=== PATIENT | female | born 1970 | race Caucasian/White ===

== ENCOUNTER → 2019-08-07 17:06 | Outpatient (REF) | payer OTHER, SELFPAY | LOC: ANHLAB 17:06 | PROVIDERS: PCP Family Medicine; Visit Provider Surgery Plastic and Reconstructive Surgery | DX: C44.90 Unspecified malignant neoplasm of skin, unspecified (principal); D49.2 Neoplasm of unspecified behavior of bone, soft tissue, and skin | CPT/HCPCS: 88305 ==

== ENCOUNTER → 2019-09-08 11:54 | Outpatient (CLI) | payer OTHER, SELFPAY ==
--- NOTE | ~2019-09-08 | MM_ITS ---
EXAMINATION: MM scrn jazlyn implant BI w davis HISTORY: Screening mammogram TECHNIQUE: Craniocaudal and mediolateral oblique 3-D tomosynthesis images with implant displacement a nd synthetic 2-D images were generated. Craniocaudal and mediolateral oblique views of the breasts wi thout implant displacement were obtained using full field digital mammography. CAD analysis was submi tted and interpreted. COMPARISON: 02/11/2018, 03/18/2014 bilateral digital screening mammogram examinations BREAST PARENCHYMAL COMPOSITION: There are scattered areas of fibroglandular density. FINDINGS: Status post bilateral augmentation mammoplasty. There is no evidence of suspicious mass, ca lcification, or architectural distortion to suggest malignancy in either breast. There has been no cooper spicious interval change. IMPRESSION: 1. No mammographic evidence of malignancy. 2. Recommend routine screening mammography in one year. BI-RADS Category 1: Negative Reviewed, dictated and finalized at location A. [facility] [employer] PSYCHOLOGIST
== END ==
PROVIDERS: PCP Family Medicine; Visit Provider Family Medicine
DX: Z12.31 Encounter for screening mammogram for malignant neoplasm of breast (principal)
CPT/HCPCS: 77063; 77067

== ENCOUNTER → 2019-10-30 14:27 | Outpatient (REF) | payer OTHER, SELFPAY | LOC: ANHLAB 14:27 | PROVIDERS: PCP Family Medicine; Visit Provider Surgery Plastic and Reconstructive Surgery | DX: C43.72 Malignant melanoma of left lower limb, including hip (principal) | CPT/HCPCS: 88305 ==

== ENCOUNTER 2022-01-10 10:15 | Emergency (ER) | payer OTHER, SELFPAY ==
[2022-01-10 10:28] VITALS: BP 106/80; PULSE 99; RESP 20; TEMP 36.6; O2SAT 98
--- NOTE | 2022-01-10 10:29 | ED.URI ---
HPI - URI/Sore Throat General Chief Complaint: Upper Respiratory Infection Stated Complaint: Cough Time Seen by Provider: 01/10/22 10:36 Source: patient and RN notes reviewed Mode of arrival: ambulatory Limitations: no limitations History of Present Illness HPI Narrative: 51-year-old female presents with concern for cough. She reports tomorrow will be 1 week of symptoms. She reports persistent nonproductive cough. She reports normal body aches, feeling feverish, chills. She reports sweats. She reports she has not measured a temperature. She reports she has tried multiple iuxi-tga-fhzoanw medications without relief. Reports the cough keeps her awake at night. She denies rhinorrhea, nasal congestion, sore throat. She reports headache. She denies known sick contacts. Reports she is taken to negative COVID test at home. In a separate complaint she reports she got bit by a cat on her right hand 2 days ago. She denies general swelling, redness, warmth, drainage, decreased sensation, strength, range of motion. MD elicited complaint: cough and other (Cat bite) Related Data Allergies Allergy/AdvReac Type Severity Reaction Status Date / Time sulfamethoxazole Allergy Unknown Rash Verified 10/11/21 10:19 trimethoprim Allergy Unknown Rash Verified 10/11/21 10:19 Review of Systems Review of Systems: CONSTITUTIONAL: Reports malaise, chills, sweats EYES: Denies visual changes, redness, or discharge. ENT: Denies rhinorrhea, congestion, sinus pain, otalgia and sore throat. CARDIOVASCULAR: Denies chest pain, palpitations, or edema. RESPIRATORY: Reports persistent nonproductive cough. Reports occasional dyspnea. GASTROINTESTINAL: Denies abdominal pain, nausea, vomiting, diarrhea SKIN: Reports a cat bite to her right hand MUSCULOSKELETAL: Reports myalgia. NEUROLOGIC: Reports headache. All systems reviewed & are unremarkable except as noted in HPI and below PMFSH Past Medical History Medical History BMI 29.0-29.9,adult Tobacco abuse Surgical History Surgical History History of cosmetic surgery Breast feb and tum2013 Family History Family History Mother Carcinoma of colon Father Family history of lung cancer Family history of malignant neoplasm of urinary bladder Family history of malignant neoplasm of kidney Sibling , cancer No problems noted. Sibling No problems noted. Other Cerebrovascular accident Diabetes mellitus Family history of cardiovascular disease Family history of malignant neoplasm Hypertension Social History Social History Tobacco type: cigarettes Second hand tobacco smoke exposure: No Alcohol intake: current Substance use: current Substance use type: marijuana Additional occupation/education comments: hairdresser Gender identity (if verbalized by the patient): Female Comments At time of signature, agree with nursing past medical, surgical, social and family history. There is no relevant family history pertinent to the presenting complaint Exam Narrative: GENERAL: Nontoxic-appearing and in no acute distress. HEAD: Normocephalic EYES: PERRLA, conjunctivae clear ENT: Nares clear, turbinates edematous and erythematous, clear discharge. Mucous membranes moist. NECK: Supple. CHEST: Clear to auscultation, breath sounds diminished in the bases bilaterally No wheezing, rhonchi, rales, or stridor. No respiratory distress, difficulty speaking in full sentences due to coughing Persistent cough noted HEART: Regular rate and rhythm. No murmur heard. Bronchophony noted in bilateral lower bases SKIN: Warm, dry, no rash. NEURO: Alert and oriented x3. PSYCH: Normal mood and affect Course Course Emergency Course: Patient is aware of d
== END 2022-01-10 10:48 | disposition home or self-care (01) ==
PROVIDERS: Emergency Provider Nurse Practitioner; PCP Family Medicine
DX: J06.9 Acute upper respiratory infection, unspecified (principal)
CPT/HCPCS: 99213; G0463

== ENCOUNTER → 2022-01-19 10:30 | Outpatient (CLI) | payer OTHER, SELFPAY ==
--- NOTE | ~2022-01-19 | XR_ITS ---
EXAMINATION: XR chest 2V 01/19/2022 11:46 INDICATION: Pneumonia. Dyspnea. PROCEDURE: 2 view chest COMPARISON: No prior studies for comparison. FINDINGS: The lungs are clear. The cardiomediastinal silhouette is within normal limits. There are no pleural effusions. There is no pneumothorax suspected. IMPRESSION: 1: NO ACUTE CARDIOPULMONARY DISEASE. Reviewed, dictated and finalized at location A.
== END ==
PROVIDERS: PCP Family Medicine; Visit Provider Nurse Practitioner Family
DX: J18.9 Pneumonia, unspecified organism (principal)
CPT/HCPCS: 71046

== ENCOUNTER 2022-02-03 13:39 | Outpatient (CLI) | payer OTHER, SELFPAY ==
--- NOTE | ~2022-02-03 | XR_ITS ---
XR lumbar spine 2-3V 02/03/2022 14:03 Indication: Low back pain. Radiculopathy. Procedure: 3 views lumbar spine Comparison: 11/06/2016 Findings: Vertebral body and disc heights are preserved. No fracture, subluxation or dislocation. Ped icles intact. Sacral foramen are symmetric. No evidence for spondylolisthesis. Impression: 1: No significant abnormality of the lumbar spine. Reviewed, dictated and finalized at location A. Impression: 1: No significant abnormality of the lumbar spine.
== END 2022-02-03 13:40 | disposition home or self-care (01) ==
PROVIDERS: PCP Family Medicine; Visit Provider Physician Assistant Medical
DX: M54.16 Radiculopathy, lumbar region (principal)
CPT/HCPCS: 72100

== ENCOUNTER → 2022-02-13 10:13 | Outpatient (CLI) | payer OTHER, SELFPAY ==
--- NOTE | ~2022-02-13 | MR_ITS ---
EXAMINATION: MR lumbar spine wo con DATE: 02/13/2022 10:38 INDICATION: Lumbar pain with radiculopathy. TECHNIQUE: Magnetic resonance imaging (MRI) of the lumbar spine was performed without intravenous con trast. Sequences included sagittal T2-weighted FSE, sagittal T2-weighted FS FSE, sagittal T1-weighted FSE, and axial T2-weighted FSE. COMPARISON: Lumbar spine radiographs 02/03/2022 FINDINGS: There is 4 degrees dextrocurvature of thoracolumbar spine. There is 3 mm retrolisthesis of L5 on S1. Vertebral body heights are normal. There is moderately decreased disc height at L5-S1. The distal spinal cord signal intensity is normal. The conus medullaris is at L1-L2. The following disc l evels are specifically discussed: L1-L2: The disc does not extend beyond the endplate margin. There is mild right facet joint osteoarth ritis. There is no neural foraminal stenosis. There is no central canal stenosis. L2-L3: The disc does not extend beyond the endplate margin. There is no facet joint osteoarthritis. T here is no neural foraminal stenosis. There is no central canal stenosis. L3-L4: The disc does not extend beyond the endplate margin. There is no facet joint osteoarthritis. T here is no neural foraminal stenosis. There is no central canal stenosis. L4-L5: The disc does not extend beyond the endplate margin. There is mild bilateral facet joint osteo arthritis. There is no neural foraminal stenosis. There is no central canal stenosis. L5-S1: There is a central extrusion that abuts the right S1 nerve root in right lateral recess. There is mild bilateral facet joint osteoarthritis. There is mild right neural foraminal stenosis. There i s mild central canal stenosis. IMPRESSION: 1. Moderate lower lumbar spondylosis. Reviewed, dictated and finalized at location A.
== END ==
PROVIDERS: PCP Family Medicine; Visit Provider Physician Assistant Medical
DX: M54.16 Radiculopathy, lumbar region (principal); M43.06 Spondylolysis, lumbar region
CPT/HCPCS: 72148

== ENCOUNTER → 2022-07-26 10:53 | Outpatient (CLI) | payer OTHER, SELFPAY ==
--- NOTE | ~2022-07-26 | MR_ITS ---
MRI of the lumbar spine Clinical History: Back pain, prior surgery Technique: Axial T2-weighted and gradient images, and sagittal T1-weighted, T2-weighted, and STIR ramona ges were acquired. Following intravenous administration of 17 cc MultiHance gadolinium, T1-weighted f at-sat imaging was performed in the axial and sagittal planes. COMPARISON: 02/13/2022 Findings: No fracture or subluxation seen in the lumbar spine. Vertebral bodies maintain normal heigh t and alignment. Patient is status post L5 laminectomy. There are reactive marrow signal changes abou t the L5-S1 disc space due to underlying degenerative disc disease. No other bone marrow signal abnor mality evident. At L1-L2, L2-L3, L3-L4, L4-L5, there is no disc bulge or herniation. No spinal canal stenosis or neur al foraminal narrowing at these levels. At L5-S1, central disc protrusion is again present, with small annular tear. There is no юлия spinal canal stenosis. There is mild facet arthropathy. Right neural foramen is mildly narrowed. Left neura l foramen preserved. There is a peripherally enhancing fluid collection in the posterior subcutaneous soft tissues at the L5 level, compatible with postoperative seroma, with enhancing scar tissue extending down to the spin al canal through the laminectomy defect. Impression: Status post interval L5 laminectomy. Persistent/recurrent disc protrusion at L5-S1, with mild right neural foraminal narrowing. Postoperative seroma and scar tissue at the L5 over, as detailed above. Correlate clinically for post operative infection. Reviewed, dictated and finalized at [facility]. 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 Persistent/recurrent disc protrusion at L5-S1, with mild right neural foraminal narrowing. Postoperative seroma and scar tissue at the L5 over, as detailed above. Correla te clinically for postoperative infection.
== END ==
PROVIDERS: PCP Family Medicine; Visit Provider Neurological Surgery
DX: M96.1 Postlaminectomy syndrome, not elsewhere classified (principal); M51.27 Other intervertebral disc displacement, lumbosacral region; M96.842 Postprocedural seroma of a musculoskeletal structure following a musculoskeletal system procedure
CPT/HCPCS: 72158; A9577

== ENCOUNTER 2022-10-18 12:17 | Day surgery (SDC) | payer OTHER, SELFPAY ==
--- NOTE | 2022-10-17 16:23 | PM.HPGS ---
History of Present Illness History of Present Illness Consent: Risks, benefits, and alternatives have been discussed and questions answered. Patient agrees to proceed with procedure. Chief complaint: Neoplasm Screening,Fam.HX.Neoplasm Digestive Organ Narrative: Shaniqua Alas is a 51 year old female referred for colon cancer screening. Her mother had colon cancer. She has had 2 previous colonoscopies. Hyperplastic polyp was removed in 2018. Review of Systems Review of Systems: All systems reviewed & are unremarkable except as noted in HPI and below PMFSH Past Medical History Medical History Anxiety and depression BMI 29.0-29.9,adult Hypothyroidism, unspecified Major depressive disorder, single episode, unspecified Tobacco abuse Tobacco use Surgical History Surgical History History of back surgery History of cosmetic surgery Breast feb and tum2013 Family History Family History Mother Carcinoma of colon Father Family history of lung cancer Family history of malignant neoplasm of urinary bladder Family history of malignant neoplasm of kidney Sibling , cancer No problems noted. Sibling No problems noted. Other Cerebrovascular accident Diabetes mellitus Family history of cardiovascular disease Family history of malignant neoplasm Hypertension Social History Social History Smoking status: Current every day smoker Tobacco type: cigarettes Second hand tobacco smoke exposure: No Alcohol intake: current Alcohol use details: socially Substance use: current Substance use type: marijuana Living arrangements: with family Occupation/Education: occupation Additional occupation/education comments: hairdresser Gender identity (if verbalized by the patient): Female Spiritual care concerns: No Meds Home Medications and Allergies Home Medications Medication Instructions Recorded Confirmed Type alprazolam 0.5 mg tablet 0.5 mg PO TID PRN anxiety #30 tabs 09/26/21 10/18/22 Rx levothyroxine 75 mcg tablet See Rx Instructions .Route 01/22/22 10/18/22 Rx .COMPLEX #90 tabs cyclobenzaprine 10 mg tablet 10 mg PO TID PRN muscle spasm #30 02/03/22 10/18/22 Rx tabs buspirone 7.5 mg tablet 7.5 mg PO BID #180 tabs 03/22/22 10/18/22 Rx citalopram 20 mg tablet See Rx Instructions .Route 07/19/22 10/18/22 Rx .COMPLEX #90 tabs dextroamphetamine-amphetamine 10 5 mg PO DAILY #30 tabs 08/09/22 10/18/22 Rx mg tablet (Adderall) gabapentin 300 mg capsule 300 mg PO Q8H 10/10/22 10/18/22 History oxycodone-acetaminophen 5 mg-325 1 tablet PO Q8H PRN Pain 10/10/22 10/18/22 History mg tablet Allergies Allergy/AdvReac Type Severity Reaction Status Date / Time sulfamethoxazole Allergy Unknown Rash Verified 10/18/22 12:33 trimethoprim Allergy Unknown Rash Verified 10/18/22 12:33 Exam Resp: Auscultation: clear to auscultation bilaterally Cardio: Rate: regular rate Rhythm: regular rhythm GI: GI Palp: Yes Soft to palpation and No Tenderness to palpation present (GI) Assessment and Plan Assessment and plan (1) Screening for colon cancer: Code(s): Z12.11 - Encounter for screening for malignant neoplasm of colon Status: Acute Assessment and Plan: Colonoscopy with possible biopsy or polypectomy or cautery or injection of substances.
--- NOTE | 2022-10-18 10:46 | WPDANESEPPF ---
Anes - Initial Pre Proc Eval Procedure: Operation Date: 10/18/22 14:00 Proposed Procedures p Colonoscopy - Vu Glasgow MD Date/Time: 10/18/22 10:46 Surgeon: Vu Glasgow MD Pre Op Diagnosis: Neoplasm Screening,Fam.HX.Neoplasm Digestive Organ Patient Data Age: 51 Gender: F Height: 1.7 m Weight: 84 kg Allergies Allergy/AdvReac Type Severity Reaction Status Date / Time sulfamethoxazole Allergy Unknown Rash Verified 10/18/22 12:33 trimethoprim Allergy Unknown Rash Verified 10/18/22 12:33 Home Medications Medication Instructions Recorded Confirmed Type alprazolam 0.5 mg tablet 0.5 mg PO TID PRN anxiety #30 tabs 09/26/21 10/18/22 Rx levothyroxine 75 mcg tablet See Rx Instructions .Route 01/22/22 10/18/22 Rx .COMPLEX #90 tabs cyclobenzaprine 10 mg tablet 10 mg PO TID PRN muscle spasm #30 02/03/22 10/18/22 Rx tabs buspirone 7.5 mg tablet 7.5 mg PO BID #180 tabs 03/22/22 10/18/22 Rx citalopram 20 mg tablet See Rx Instructions .Route 07/19/22 10/18/22 Rx .COMPLEX #90 tabs dextroamphetamine-amphetamine 10 5 mg PO DAILY #30 tabs 08/09/22 10/18/22 Rx mg tablet (Adderall) gabapentin 300 mg capsule 300 mg PO Q8H 10/10/22 10/18/22 History oxycodone-acetaminophen 5 mg-325 1 tablet PO Q8H PRN Pain 10/10/22 10/18/22 History mg tablet Patient hx anesthesia problems: none Family hx anesthesia problems: none Results Review: All pre-operative results and documents have been reviewed as part of the pre-operative evaluation. [facility] Past Medical History Medical History Anxiety and depression BMI 29.0-29.9,adult Hypothyroidism, unspecified Major depressive disorder, single episode, unspecified Tobacco abuse Tobacco use Surgical History Surgical History History of back surgery History of cosmetic surgery Breast aug and tummy 2013 Family History Family History Mother Carcinoma of colon Father Family history of lung cancer Family history of malignant neoplasm of urinary bladder Family history of malignant neoplasm of kidney Sibling , cancer No problems noted. Sibling No problems noted. Other Cerebrovascular accident Diabetes mellitus Family history of cardiovascular disease Family history of malignant neoplasm Hypertension Social History Social History Smoking status: Current every day smoker Tobacco type: cigarettes Second hand tobacco smoke exposure: No Alcohol intake: current Alcohol use details: socially Substance use: current Substance use type: marijuana Living arrangements: with family Occupation/Education: occupation Additional occupation/education comments: karen Gender identity (if verbalized by the patient): Female Spiritual care concerns: No Anes - Eval Final PreProcedure Day of Procedure 10/18/22 10:46 Patient weight: overweight Heart: regular rate and rhythm Lungs: clear to auscultation and normal air movement Airway: Mallampati scale class II Neurological: alert and oriented Last oral intake: >/= 8 hours ASA classification: II Emergent: no Anesthetic plan: proceed Anesthesia type and monitoring: general GIVS Results Review: All pre-operative results and documents have been reviewed as part of the pre-operative evaluation. Informed Consent: The patient's anesthetic plan and its attendant risks and benefits were discussed with the patient/family/POA. Questions were solicited and answers provided to the satisfaction of the patient/family/POA.
[2022-10-18 12:30] VITALS: BP 114/72; PULSE 84; RESP 20; TEMP 36.7; O2SAT 100
[2022-10-18] MEDS: LACTATED RINGERS 1,000 ML 150 ML IV CONT (12:46)
[2022-10-18 14:12] VITALS: BP 96/66; PULSE 87; RESP 20; O2SAT 99
[2022-10-18 14:22] VITALS: BP 120/79; PULSE 85; RESP 20; O2SAT 99
[2022-10-18 14:32] VITALS: BP 119/76; PULSE 74; RESP 20; O2SAT 99
--- NOTE | 2022-10-18 15:12 | WPDANESPN ---
Anes - Prog Note Post-Op Date/Time: 10/18/22 15:12 Cardiovascular status: normal Respiratory status: normal Airway patency: baseline Mental status: baseline Post-Op hydration status: normal Vital Signs: Last Vital Signs Temp 36.7 C 10/18/22 12:30 Pulse 74 10/18/22 14:32 Resp 20 10/18/22 14:32 BP 119/76 10/18/22 14:32 Pulse Ox 99 10/18/22 14:32 O2 Del Method Room Air 10/18/22 14:32 Pain Score (VAS): 0 I/O: Intake & Output 10/17/22 10/18/22 10/18/22 23:59 07:59 15:59 Intake Total 500 Balance 500 Post-procedural complaints: none Patient Feedback: Patient satisfied with anesthetic care.
== END 2022-10-18 14:59 | disposition home or self-care (01) ==
PROVIDERS: PCP Family Medicine; Visit Provider Internal Medicine Gastroenterology
PROC: 0DJD8ZZ Inspection of Lower Intestinal Tract, Via Natural or Artificial Opening Endoscopic (ICD-10-PCS; CPT 45378; principal; 2022-10-18 14:00)
DX: Z12.11 Encounter for screening for malignant neoplasm of colon (principal)
CPT/HCPCS: 45378

== ENCOUNTER 2022-10-31 12:23 | Outpatient (CLI) | payer OTHER, SELFPAY ==
[2022-10-31 13:44] LABS: Alanine Aminotransferase 24 U/L (6-35); Alkaline Phosphatase 64 U/L (38-126); Amylase 53 U/L (30-110); Aspartate Amino Transferase 22 U/L (14-36); Bilirubin,Total 0.4 mg/dL (0.2-1.3); Lipase 72 U/L (23-300)
== END 2022-10-31 12:24 | disposition home or self-care (01) ==
LOC: ANHSURGERY 12:27
PROVIDERS: PCP Family Medicine; Visit Provider Surgery
DX: Z01.812 Encounter for preprocedural laboratory examination (principal); K80.20 Calculus of gallbladder without cholecystitis without obstruction
CPT/HCPCS: 36415; 80076; 82150; 83690; 86850; 86900; 86901

== ENCOUNTER 2022-11-01 01:26 | Day surgery (SDC) | payer OTHER, SELFPAY ==
[2022-10-30 08:24] VITALS: BMI 29.0
--- NOTE | 2022-10-30 08:45 | SUR.PREOP ---
Report to the Outpatient Waiting Room, entrance under the green pavilion located off [facility], at time 0900 on date 11/01/2022. Planned Procedure Time: 1100. Time changes happen often and if your time is changed the preop area will call you the afternoon before. - You and your visitor will be asked to self-screen and do not enter if you have any COVID symptoms. - A mask is optional within the hospital at this time. Patients may have clear liquids (water, carbonated beverages, clear teas, apple juice) until 3 hours (0800) prior to surgery with a maximum of 20 ounces. - No food from midnight until time of surgery - Infants may have breast milk until 4 hours before surgery, infant formula 6 hours prior to surgery. - Children will be allowed to drink immediately following surgery. If applicable, please bring a bottle or sippy cup to assist with drinking. Juice, water, soda, and popsicles are readily available. For infants on formula, please bring formula the day of surgery. Pacifiers are allowed. Take the following medications with a SIP of water the morning of surgery: Levothyroxine, Buspirone, Celexa, Lyrica, as needed- Alprazolam, as needed-Percocet , as needed-Tramadol DO NOT STOP ANY OF YOUR OTHER PRESCRIPTION MEDICATIONS PRIOR TO SURGERY ?EXCEPT THE FOLLOWING Medications to discontinue per physician N/A Please no make-up, nail pitcairn islander, hairspray, perfume, deodorant, or body powder the day of surgery. No jewelry (including any body piercings) or valuables the day of surgery, leave them at home. Please take a shower or bath the night before, or the morning of, surgery with an antibacterial soap- HIBICLENS. Wear comfortable, loose fitting clothing. Children are encouraged to wear pajamas. - Jewelry must be removed prior to entering the operating room. Rings and piercings that are not removed may be cut off. - The hospital will not accept responsibility for valuables. - Please leave all valuables, including medications, at home the day of surgery. If you are going home after surgery, a licensed milk pickup truck driver must drive you home. - NO public transportation without another adult if you receive anesthesia. - We recommend that an adult stay with you for 24 hours following discharge. - We also recommend that you do not drive, make important decision, drink alcoholic beverages, or take any drugs that were not prescribed by your health care provider for at least 24 hours after your discharge time. For Pediatric surgeries, we recommend two adults accompany the child home. Follow any additional instructions given to you from your surgeon. If you or anyone in your household have experienced Covid symptoms in the past week, please notify your surgeon or the nurse liaison at the phone number below for possible testing. Telephone instructions given to patient-Shaniqua and asked if any additional questions and then verbalized understanding. Patient advised to call surgeon office or pre surgery nurse liaison [phone] if any additional questions.
[2022-11-01] VITALS (9 sets, daily range): BP systolic 91–112; BP diastolic 46–75; PULSE 75–95; RESP 12–16; TEMP 36.3; O2SAT 98–100
[2022-11-01] MEDS: ACETAMINOPHEN 500 MG TABLET 1000 MG PO (09:08)
[2022-11-01] MEDS: KETOROLAC 15 MG/ML VIAL (*BKC) IV PUSH (09:10)
--- NOTE | 2022-11-01 09:10 | WPDANESEPPF ---
Anes - Initial Pre Proc Eval Procedure: Operation Date: 11/01/22 11:00 Proposed Procedures p Laparoscopic Cholecystectomy, Possible Open - Roque Coburn MD Date/Time: 11/01/22 09:10 Surgeon: Roque Coburn MD Pre Op Diagnosis: symp cholelithiasis Patient Data Age: 51 Gender: F Height: 1.7 m Weight: 84.09 kg Last Vital Signs Temp 36.3 C L 11/01/22 08:43 Pulse 90 11/01/22 08:43 Resp 16 11/01/22 08:43 BP 103/56 L 11/01/22 08:43 Pulse Ox 98 11/01/22 08:43 O2 Del Method Room Air 11/01/22 08:43 Allergies Allergy/AdvReac Type Severity Reaction Status Date / Time sulfamethoxazole Allergy Mild Rash Verified 11/01/22 07:44 trimethoprim Allergy Mild Rash Verified 11/01/22 07:44 Home Medications Medication Instructions Recorded Confirmed Type levothyroxine 75 mcg tablet See Rx Instructions .Route 01/22/22 10/30/22 Rx .COMPLEX #90 tabs buspirone 7.5 mg tablet 7.5 mg PO BID #180 tabs 03/22/22 10/30/22 Rx citalopram 20 mg tablet See Rx Instructions .Route 07/19/22 10/30/22 Rx .COMPLEX #90 tabs oxycodone-acetaminophen 5 mg-325 1 tablet PO Q8H PRN Pain 10/10/22 10/30/22 History mg tablet alprazolam 0.5 mg tablet 0.5 mg PO TID PRN anxiety #30 tabs 10/19/22 10/30/22 Rx omeprazole 40 mg capsule,delayed 40 mg PO DAILY #30 caps 10/19/22 10/30/22 Rx release pregabalin 25 mg capsule (Lyrica) 25 mg PO BID 10/19/22 10/30/22 History tramadol 50 mg tablet 50 mg PO Q6H PRN pain #1 tablet 10/19/22 10/30/22 Rx Patient hx anesthesia problems: none Family hx anesthesia problems: none Results Review: All pre-operative results and documents have been reviewed as part of the pre-operative evaluation. PMFSH Past Medical History Medical History Anxiety and depression BMI 29.0-29.9,adult BMI 30.0-30.9,adult Hypothyroidism, unspecified Major depressive disorder, single episode, unspecified Tobacco abuse Tobacco use Surgical History Surgical History History of back surgery History of cosmetic surgery Breast aug and tummy tuck 2013 Family History Family History Mother Carcinoma of colon Father Family history of lung cancer Family history of malignant neoplasm of urinary bladder Family history of malignant neoplasm of kidney Sibling , cancer Bone cancer Sibling No problems noted. Other Cerebrovascular accident Diabetes mellitus Family history of cardiovascular disease Family history of malignant neoplasm Hypertension Social History Social History Years smoked: 25 Smoking status: Current every day smoker Tobacco type: cigarettes Second hand tobacco smoke exposure: No Alcohol intake: current Drinks per week: 1 Alcohol use details: socially Substance use: current Substance use type: marijuana Other substance usage details: marijuana 2 weeks ago Lack of Transportation: No Lack of Food: Never True Current Housing: I Have Housing Concerned About Future Housing: No Difficulty Paying Gas/Electric Bills: No Difficulty Paying for Meds: No Currently Unemployed: No Education: Associate Degree Difficulty w/ Childcare or Family Care: No Living arrangements: with family Occupation/Education: occupation Additional occupation/education comments: karen Gender identity (if verbalized by the patient): Female Spiritual care concerns: No Anes - Eval Final PreProcedure Day of Procedure 11/01/22 09:10 Patient weight: overweight Heart: regular rate and rhythm Lungs: decreased breath sounds Airway: Mallampati scale class II Neurological: alert and oriented Last oral intake: >/= 8 hours ASA classification: III Emergent: no Anesthetic plan: proceed Anesthesia type and monitoring: general ETT and standard
[2022-11-01] MEDS: LACTATED RINGERS 1,000 ML 30 ML IV CONT ×2 (09:16→11:19)
[2022-11-01] MEDS: SCOPOLAMINE 1.5 MG PATCH TRANSDERM (09:17)
--- NOTE | 2022-11-01 09:25 | WPDHPUPDATE1 ---
History and Physical Update Update Date/Time: 11/01/22 09:25 History and Physical has been reviewed, including an updated exam of the patient. There are NO changes in the patient's condition. Risks, benefits, and alternatives have been discussed and questions answered. Patient agrees to proceed with procedure.
[2022-11-01] MEDS: ceFAZolin 2 GM/D5W 50 ML 2 GM/50 ML BAG IVPB (09:51)
[2022-11-01] MEDS: BUPivacaine HCL 0.5% PF 30 ML VIAL 20 ML INFILTRATE (10:56)
[2022-11-01] MEDS: LIDO 1%/EPINEPHRINE 1:100,000 50 ML VIAL 20 ML INFILTRATE (10:56)
[2022-11-01] MEDS: fentaNYL CITRATE INJ (*CRX) 100 MCG/2 ML VIAL 25 MCG IV PUSH ×4 (11:25→11:45)
[2022-11-01] MEDS: ONDANSETRON INJ 4 MG/2 ML VIAL IV PUSH (11:31)
--- NOTE | 2022-11-01 11:37 | W.PM.PROC2 ---
Procedure Note - Detailed Date of Procedure 11/01/22 Pre-op Diagnosis Symptomatic cholelithiasis Post-op Diagnosis Other (Chronic cholecystitis secondary to cholelithiasis) Procedure Performed Laparoscopic cholecystectomy Surgeon Roque Coburn MD Cardiology Technician MARCIO Garcia Anesthesia General Indications Patient is a 12-year-old female who presented with complaints of right upper quadrant epigastric abdominal pain made worse with eating. Multiple gallstones were noted to be within the gallbladder on imaging. She presents now for an elective laparoscopic cholecystectomy. Findings Large gallbladder with gallbladder wall thickening and some chronic adhesions of the omentum to the fundus and infundibulum of the gallbladder. Multiple gallbladder stones were present. Description of Procedure After informed consent was obtained the patient was brought to the operating room where she was placed in supine position and general endotracheal anesthesia was administered. The end was then prepped and draped in usual sterile fashion. Was then performed correctly identifying the patient as well as procedure to be performed and verified she was given perioperative IV antibiotics. The proceeded to enter the abdomen in the left upper quadrant utilizing a 5mm Optiview port with a direct optical insertion. Once inside the abdomen insufflated to adequate pneumoperitoneum of 15mmHg of CO2. There were no adhesions around the area the umbilicus we placed a 5mm Optiview port in the periumbilical position. Laparoscopic switched over to the periumbilical position the looking into the upper portion of the abdomen I could see very large gallbladder which was moderately distended with some moderate gallbladder wall thickening and chronic adhesions of the omentum to the gallbladder wall. I then placed additional trocar ports to include a 10mm epigastric trocar port and 2 right lateral subcostal 5mm trocar ports. I then held the gallbladder laparoscopic grasper at the dome and elevated the gallbladder towards the right shoulder over the right half liver. A 2nd grasper was then used over the gallbladder infundibulum. I then proceed to strip down the omental adhesions to the gallbladder wall bluntly. I then proceeded to strip down the visceroperitoneum off of the infundibular gallbladder to identify the cystic duct. The cystic duct was then dissected out circumferentially. The cystic artery was identified it was dissected out circumferentially as well. They have both an anterior and posterior branch and each branch was dissected out circumferentially. The posterior wall the gallbladder at the infundibulum dissected free of the liver bed until the critical view was obtained. At this point I then placed 2 clips proximally in cystic duct and 2 clips distally high on infundibular gallbladder. The cystic duct was then divided Endo Jana. The anterior branch of the cystic artery was going into the gallbladder it was clipped and divided. Posterior branch seemed to be going into the liver and this was a small branch so I do not think it was the right hepatic artery. It was preserved and was not divided. The gallbladder was resected off of the liver utilizing electrocautery without spilling any gallbladder stones or bile. Once the gallbladder was freed from the liver it was placed into an Endo-Catch bag and brought out through the epigastric trocar port site. The gallbladder gallstones within were sent to pathology for examination. I then irrigated out the right upper quadrant the abdomen the gallbladder fossa copious in sterile saline solution. Hemostasis was good there was no evidence of bile leak. I then aspirated the fluid from the right upper quadrant the abdomen from the pelvis. I then removed all the trocar ports under visualization all port sites appeared hemostatic. I then allowed the abdomen decompressed. The epigastric 10mm trocar port fascial defect was then
[2022-11-01] MEDS: oxyCODONE HCL (*CRX) 5 MG TAB IR PO (12:42)
== END 2022-11-01 13:31 | disposition home or self-care (01) ==
PROVIDERS: PCP Family Medicine; Visit Provider Surgery
PROC: 0FT44ZZ Resection of Gallbladder, Percutaneous Endoscopic Approach (ICD-10-PCS; CPT 47562; principal; 2022-11-01 11:00)
DX: K80.10 Calculus of gallbladder with chronic cholecystitis without obstruction (principal); F41.8 Other specified anxiety disorders; E03.9 Hypothyroidism, unspecified; F17.210 Nicotine dependence, cigarettes, uncomplicated; F12.90 Cannabis use, unspecified, uncomplicated
CPT/HCPCS: 47562; 36415; 80076; 82150; 83690; 86850; 86900; 86901; 88304; A9270; C1713; J0690; J1100; J1170; J1885; J2250; J2405; J2704; J2710; J3010; J7030; J7120

== ENCOUNTER → 2022-12-29 09:48 | Outpatient (CLI) | payer OTHER, SELFPAY ==
--- NOTE | ~2022-12-29 | MR_ITS ---
MRI of the lumbar spine Clinical History: Spondylosis Technique: Axial T2-weighted images, and sagittal T1-weighted, T2-weighted, and T2 fat-sat images wer e acquired. Following intravenous administration of 17 cc MultiHance gadolinium, T1-weighted fat-sat imaging was performed in the axial and sagittal planes. COMPARISON: 07/26/2022 Findings: Patient is status post interval posterior fusion from L5 to S1, bilateral rods and transped icular screws, as well as interbody fusion device present. L5 laminectomy is present. No acute fractu re or sublocation evident. No suspicious bone marrow signal reality seen. At L1-L2, L2-L3, L3-L4, L4-L5, there are mild to moderate facet joint degenerative changes. No disc b ulge or herniation at these levels. No spinal canal stenosis or neural foraminal narrowing at these l evels. At L5-S1, there is no disc bulge or herniation. No spinal canal stenosis evident. Possible mild right neural foraminal narrowing. Posterior paravertebral soft tissues are unremarkable aside from expected postoperative changes. No s uspicious/abnormal postcontrast enhancement identified. Impression: Status post interval posterior fusion/laminectomy L5-S1, as detailed above. Possible mild right neural foraminal narrowing at L5-S1. Reviewed, dictated and finalized at location M. Impression: Status post interval posterior fusion/laminectomy L5-S1, as detailed above. Possible mild right neural foraminal narrowing at L5-S1.
== END ==
PROVIDERS: PCP Family Medicine; Visit Provider Neurological Surgery
DX: M47.816 Spondylosis without myelopathy or radiculopathy, lumbar region (principal); Z98.1 Arthrodesis status
CPT/HCPCS: 72158; A9577

== ENCOUNTER 2023-01-09 10:41 | Emergency (ER) | payer OTHER, SELFPAY ==
--- NOTE | ~2023-01-09 | XR_ITS ---
EXAMINATION: XR chest 1V portable INDICATION: Left-sided chest pain after trauma TECHNIQUE: Portable AP chest at 1053 hours COMPARISON: 01/19/2022 FINDINGS: The lungs are free of acute opacities. No pleural effusion or pneumothorax. The cardiomedia stinal silhouette is normal. The visualized bones and soft tissues are unremarkable. IMPRESSION: 1. No acute cardiopulmonary abnormality. Reviewed, dictated and finalized at location A.
--- NOTE | ~2023-01-09 | CT_ITS ---
EXAMINATION: CTA chest PE protocol DATE: 01/09/2023 12:15 INDICATION: Left-sided chest pain, transient alteration of awareness TECHNIQUE: Computed tomography angiography (CTA) of the chest was performed with 100 mL Omnipaque-350 intravenous contrast timed to evaluate the pulmonary arteries. Coronal maximum intensity projection 3D-reconstructions were created by the technologist. The dose-length product (DLP) was 319.87 mGy-cm. Automated exposure control and iterative reconstruction technique were employed. COMPARISON: None. FINDINGS: The pulmonary arteries are well-opacified. No pulmonary embolism is identified. There are s mall pleural effusions, left greater than right. No pathologically enlarged thoracic lymph nodes are identified. The heart size is normal. Bilateral breast implants are noted. There is mild dependent at electasis. No pneumothorax is identified. There is an acute, nondisplaced anterior fracture of the le ft fifth rib. IMPRESSION: 1. No pulmonary embolus. 2. Acute, nondisplaced anterior fracture of the left fifth rib. 3. Small pleural effusions. Reviewed, dictated and finalized at location A.
--- NOTE | 2023-01-09 10:49 | ECG_ITS ---
Measurements Intervals Supply Rate: 75 P: -22 MA: 131 QRS: 24 QRSD: 81 T: 12 QT: 374 QTc: 418 Interpretive Statements SINUS RHYTHM NORMAL ECG NO PREVIOUS ECG AVAILABLE FOR COMPARISON Electronically Signed On 01-09-2023 12:15:48 CDT by Raman Murray D.O.
[2023-01-09 11:00] VITALS: BP 121/97; PULSE 90; RESP 16; TEMP 36.8; O2SAT 97
[2023-01-09 11:04] LABS: Basophils Percent Auto 0.3 % (0.2-1.2); Eosinophils Absolute Auto 0.2 K/mm3 (0-0.3); Eosinophils Percent Auto 2.3 % (0-4.4); Hematocrit 45.6 % (37.0-47.0); Hemoglobin 15.1 g/dL (12.0-15.0); Immature Granulocyte Absolute 0.02 K/mm3 (0.00-0.031); Immature Granulocyte Percent A 0.2 % (0-0.5); Lymphocytes Absolute Auto 1.95 K/mm3 (0.9-3.2); Lymphocytes Percent Auto 21.6 % (18.3-44.2); Mean Corpuscular HGB Conc 33.1 g/dl (32-36); Mean Corpuscular Hemoglobin 29.4 pg (26-34); Mean Corpuscular Volume 88.9 fl (80-100); Mean Platelet Volume 8.8 fl (7.4-10.4); Monocytes Absolute Auto 0.3 K/mm3 (0.1-0.6); Monocytes Percent Auto 3.5 % (2.6-8.5); Neutrophils Absolute Auto 6.5 K/mm3 (1.3-6.7); Neutrophils Percent Auto 72.1 % (45.5-73.1); Platelet Count Result 363 k/mm3 (150-375); Red Blood Count 5.13 M/mm3 (4.2-5.4); Red Cell Distribution Width 13.2 % (11.5-14.5)
[2023-01-09 11:16] LABS: Alanine Aminotransferase 27 U/L (6-35); Albumin Level 4.8 g/dL (3.5-5.1); Alkaline Phosphatase 88 U/L (38-126); Anion Gap 10 mmol/L (8-16); Aspartate Amino Transferase 27 U/L (14-36); Bilirubin,Total 0.6 mg/dL (0.2-1.3); Blood Urea Nitrogen 13 mg/dL (7-17); Calcium 9.7 mg/dL (8.4-10.2); Carbon Dioxide 28 mmol/L (22-30); Chloride 101 mmol/L (98-107); Estimated CRCL calculation 99 ml/min; Estimated Glomerular Filt Rate > 60; Glucose 113 mg/dL (65-110); Potassium 4.1 mmol/L (3.4-5.0); Sodium 139 mmol/L (137-145)
[2023-01-09] MEDS: MORPHINE SULFATE (*CRX) 4 MG/ML INJ IV PUSH (11:16)
[2023-01-09] MEDS: SODIUM CHLORIDE 0.9% IV 1,000 ML 999 ML IV CONT ×2 (11:16→13:45)
[2023-01-09] MEDS: KETOROLAC 30 MG/ML VIAL (*BKC) IV PUSH (13:45)
--- NOTE | 2023-01-09 14:18 | ED.SOB ---
HPI - SOB/Dyspnea General Chief Complaint: Shortness of Breath/Dyspnea Stated Complaint: Difficulty Breathing/pain Time Seen by Provider: 01/09/23 10:54 History of Present Illness HPI Narrative: Patient is a 52-year-old female who presents ER with left-sided chest wall pain. Worsening over the last 3 days. Worse with deep breath and movement. Holds her breast and chest to alleviate discomfort but is not helping. No runny nose or sore throat or productive cough. Symptoms began after she had a syncopal episode. She reports she had been outside for prolonged time in the heat and got up to go inside. She felt lightheaded and fell forward onto her face. was close by and saw her shortly after she fell. She woke up and then was helped to her feet and went inside. Patient did not seek care at a local emergency room that performed a CT scan of her head and performed other test without any acute injury identified other than her bruising. Related Data Allergies Allergy/AdvReac Type Severity Reaction Status Date / Time sulfamethoxazole Allergy Mild Rash Verified 11/08/22 09:35 trimethoprim Allergy Mild Rash Verified 11/08/22 09:35 Review of Systems Review of Systems: All systems reviewed & are unremarkable except as noted in HPI and below Constitutional: Constitutional: Denies chills, Denies fatigue and Denies fever(s) ENT: Denies nasal congestion and Denies sore throat Cardiovascular: Cardiovascular: Reports chest pain, Denies rapid heart rate and Denies radiating jaw, neck or arm pain Respiratory: Respiratory: Denies cough, Reports dyspnea and Denies wheezing Gastrointestinal: Gastrointestinal: Denies abdominal pain, Denies nausea and Denies vomiting Integumentary/Breasts: Skin/Breast: Reports breast pain Comments: Bruising PMFSH Past Medical History Medical History Anxiety and depression BMI 29.0-29.9,adult BMI 30.0-30.9,adult Hypothyroidism, unspecified Major depressive disorder, single episode, unspecified Tobacco abuse Tobacco use Surgical History Surgical History (Updated 11/08/22 @ 09:37 by Mar Mann) History of back surgery History of cosmetic surgery Breast aug and tummy 2013 Hx laparoscopic cholecystectomy 11/01/[address] Coburn. Family History Family History Mother Carcinoma of colon Father Family history of lung cancer Family history of malignant neoplasm of urinary bladder Family history of malignant neoplasm of kidney Sibling , cancer Bone cancer Sibling No problems noted. Other Cerebrovascular accident Diabetes mellitus Family history of cardiovascular disease Family history of malignant neoplasm Hypertension Social History Social History Years smoked: 25 Smoking status: Current every day smoker Tobacco type: cigarettes Second hand tobacco smoke exposure: No Alcohol intake: current Drinks per week: 1 Alcohol use details: socially Substance use: current Substance use type: marijuana Other substance usage details: marijuana 2 weeks ago Lack of Transportation: No Lack of Food: Never True Current Housing: I Have Housing Concerned About Future Housing: No Difficulty Paying Gas/Electric Bills: No Difficulty Paying for Meds: No Currently Unemployed: No Education: Associate Degree Difficulty w/ Childcare or Family Care: No Living arrangements: with family Occupation/Education: occupation Additional occupation/education comments: hairdresser Gender identity (if verbalized by the patient): Female Spiritual care concerns: No Exam Narrative: GENERAL: Uncomfortable-appearing, well-nourished, and in no acute distress. HEAD: Normocephalic, atraumatic. EYES: PERRL and EOMI. Old periorbital bruising left side. ENT: Mucous membranes moist. CHEST: Clear t
[2023-01-09 14:32] VITALS: BP 100/79; PULSE 75; RESP 14; O2SAT 100
== END 2023-01-09 14:33 | disposition home or self-care (01) ==
PROVIDERS: Emergency Provider Emergency Medicine; PCP Family Medicine
DX: S22.32XA Fracture of one rib, left side, initial encounter for closed fracture (principal); E03.9 Hypothyroidism, unspecified; F32.9 Major depressive disorder, single episode, unspecified; F41.9 Anxiety disorder, unspecified; F17.210 Nicotine dependence, cigarettes, uncomplicated; Z90.49 Acquired absence of other specified parts of digestive tract; W18.39XA Other fall on same level, initial encounter
CPT/HCPCS: 36415; 71045; 71275; 80053; 85025; 93005; 96374; 96375; 99284; J1885; J2270; J7030; Q9967

== ENCOUNTER → 2023-06-22 14:23 | Outpatient (CLI) | payer OTHER, SELFPAY ==
--- NOTE | ~2023-06-22 | CT_ITS ---
EXAMINATION: CT lumbar spine wo con DATE: 06/22/2023 14:41 INDICATION: Arthrodesis status post L5-S1 posterior and interbody fusion. TECHNIQUE: Computed tomography (CT) of the lumbar spine was performed without intravenous contrast. A utomated exposure control and iterative reconstruction technique were employed. The dose-length produ ct was 662.54 mGy-cm. COMPARISON: Lumbar spine MR dated 12/29/[address] abdomen and pelvis dated 06/15/2017 FINDINGS: 7 degrees lumbar dextrocurvature. 3 mm retrolisthesis L5 on S1. Partial L5 laminectomy with resection of the bilateral inferior articular processes. Attempted combined instrumented anterior and posterio r spinal fusion at L5-S1. There is some bone graft material within the pair of interbody fusion devic es but no solid osseous between the L5 and S1 vertebral bodies. Similar there is no solid osseous princess dging posteriorly. There is lucency with thin sclerotic rim surrounding both the left and right fixat ion screws at S1 which suggests loosening. Vertebral body heights are normal. The more cephalad disc spaces are normal. Mild bilateral sacroiliac osteoarthritis. Paravertebral soft tissues are unremarka ble. The following disc levels are specifically discussed: T12-L1 through L2-L3: The disc does not extend beyond the endplate margin. There is mild bilateral fa cet joint osteoarthritis. There is no neural foraminal stenosis. There is no central canal stenosis. L3-L4: Small left foraminal zone disc protrusion.. There is moderate right and mild left facet joint osteoarthritis. There is mild left neural foraminal stenosis. There is no central canal stenosis. L4-L5: The disc does not extend beyond the endplate margin. There is mild bilateral facet joint osteo arthritis. There is no neural foraminal stenosis. There is no central canal stenosis. L5-S1: There is prominent streak artifact associated with the anterior and posterior spinal fusion in strumentation. There are small endplate osteophytes at the bilateral foraminal zones resulting from t he inferior endplate of L5 which contributes to mild left-sided and mild to moderate right-sided neur al foraminal stenosis. Posterior decompression with no central canal stenosis. IMPRESSION: 1. Attempted instrumented anterior and posterior spinal fusion at L5-S1 with no solid osseous bridgin g yet apparent at the level of the disc space and with increased lucency surrounding the bilateral pe dicle screws at S1 suggesting loosening. 2. Mild scattered degenerative changes in the lumbar spine with neural foraminal stenosis, mild to mo derate on the right at L5-S1 and mild on the left at L3-L4 and L5-S1. Reviewed, dictated and finalized at location A. TER HELPER IMPRESSION: 1. Attempted instrumented anterior and posterior spinal fusion at L5-S1 with no solid osseous bridging yet apparent at the level of the disc space and with in creased lucency surrounding the bilateral pedicle screws at S1 suggesting loose ta. 2. Mild scattered degenerative changes in the lumbar spine with neural foramina l stenosis, mild to moderate on the right at L5-S1 and mild on the left at L3-L 4 and L5-S1.
== END ==
PROVIDERS: PCP Family Medicine; Visit Provider Neurological Surgery
DX: M51.36 Other intervertebral disc degeneration, lumbar region (principal); M51.37 Other intervertebral disc degeneration, lumbosacral region; M48.061 Spinal stenosis, lumbar region without neurogenic claudication; M48.07 Spinal stenosis, lumbosacral region; Z98.1 Arthrodesis status
CPT/HCPCS: 72131

== ENCOUNTER → 2023-09-11 10:54 | Outpatient (CLI) | payer OTHER, SELFPAY ==
--- NOTE | ~2023-09-11 | XR_ITS ---
EXAMINATION: XR lumbar spine 2-3V DATE: 09/11/2023 11:11 INDICATION: Arthrodesis status one year post L5-S1 fusion TECHNIQUE: Anteroposterior and lateral views of the lumbar spine were obtained. COMPARISON: 02/03/[address], 06/22/2023 FINDINGS: There are changes of posterior fusion and laminectomy and anterior interbody device placeme nt at L5-S1. There is persistent lucency surrounding the S1 pedicle screws. Bone alignment is normal. There is no fracture. The vertebral body heights are maintained. There is mild facet joint osteoarth ritis throughout the lumbar spine. Surgical clips in the right upper quadrant are likely from prior c holecystectomy. IMPRESSION: 1. Changes of posterior fusion and laminectomy at L5-S1 and interbody device placement with persisten t lucencies surrounding the S1 pedicle screws, suggestive of loosening. 2. Mild lumbar spondylosis. Reviewed, dictated and finalized at location L. ASST IMPRESSION: 1. Changes of posterior fusion and laminectomy at L5-S1 and interbody device pl acement with persistent lucencies surrounding the S1 pedicle screws, suggestive of loosening. 2. Mild lumbar spondylosis.
== END ==
PROVIDERS: PCP Neurological Surgery; Visit Provider Neurological Surgery
DX: M43.06 Spondylolysis, lumbar region (principal); M96.1 Postlaminectomy syndrome, not elsewhere classified; Z98.1 Arthrodesis status
CPT/HCPCS: 72100

== ENCOUNTER 2024-01-14 09:53 | Outpatient (CLI) | payer OTHER, SELFPAY ==
--- NOTE | ~2024-01-14 | CT_ITS ---
EXAMINATION: CT lumbar spine wo con DATE: 01/14/2024 10:06 INDICATION: Arthrodesis status. TECHNIQUE: Computed tomography (CT) of the lumbar spine was performed without intravenous contrast. A utomated exposure control and iterative reconstruction technique were employed. The dose-length produ ct was 582.51 mGy-cm. COMPARISON: CT lumbar spine 06/22/2023, MRI 12/29/2022 FINDINGS: There is 3 mm retrolisthesis of L5 on S1. Vertebral body heights are normal. There are garcias ges of anterior and posterior fusion procedures at L5-S1 with interbody devices and pedicle screws. N o bridging interbody bone. Again seen is lucency around the S1 screws. Vertebral body heights are nor mal. Intervertebral disc heights are normal. There are changes of cholecystectomy. The following disc levels are specifically discussed: L1-L2: The disc does not extend beyond the endplate margin. There is mild bilateral facet joint osteo arthritis. There is no neural foraminal stenosis. There is no central canal stenosis. L2-L3: The disc does not extend beyond the endplate margin. There is mild bilateral facet joint osteo arthritis. There is no neural foraminal stenosis. There is no central canal stenosis. L3-L4: The disc is bulging. There is mild bilateral facet joint osteoarthritis. There is mild bilater al neural foraminal stenosis. There is mild central canal stenosis. L4-L5: The disc is bulging. There is mild bilateral facet joint osteoarthritis. There is mild bilater al neural foraminal stenosis. There is no central canal stenosis. L5-S1: There is no facet joint osteoarthritis. There is mild right neural foraminal stenosis. There i s mild central canal stenosis with posterior decompression. IMPRESSION: 1. Mild lumbar spondylosis. 2. Anterior and posterior fusion procedures at L5-S1. Lucency again seen around the S1 screws, consis tent with loosening. Reviewed, dictated and finalized at location E. IMPRESSION: 1. Mild lumbar spondylosis. 2. Anterior and posterior fusion procedures at L5-S1. Lucency again seen around the S1 screws, consistent with loosening.
== END 2024-01-14 09:54 ==
LOC: MICIMG 09:54
PROVIDERS: PCP Neurological Surgery; Visit Provider Neurological Surgery
DX: M43.06 Spondylolysis, lumbar region (principal); Z98.1 Arthrodesis status
CPT/HCPCS: 72131

== ENCOUNTER 2024-06-09 11:52 | Outpatient (CLI) | payer OTHER, SELFPAY ==
--- NOTE | ~2024-06-09 | MM_ITS ---
EXAMINATION: MM scrn jazlyn implant BI w davis HISTORY: Screening mammogram TECHNIQUE: Craniocaudal and mediolateral oblique 3-D tomosynthesis images with implant displacement a nd synthetic 2-D images were generated. Craniocaudal and mediolateral oblique views of the breasts wi thout implant displacement were obtained using full field digital mammography. CAD analysis was submi tted and interpreted. COMPARISON: Comparison to multiple prior studies sequentially, with oldest reviewed study dated 12/2017. BREAST PARENCHYMAL COMPOSITION: Not dense: There are scattered areas of fibroglandular density. FINDINGS: There is no evidence of suspicious mass, calcification, or architectural distortion to sugg est malignancy in either breast. There has been no suspicious interval change. IMPRESSION: 1. No mammographic evidence of malignancy. 2. Recommend routine screening mammography in one year. BI-RADS Category 1: Negative Reviewed, dictated and finalized at location B. ING INTERN
== END 2024-06-09 11:53 | disposition home or self-care (01) ==
PROVIDERS: PCP Family Medicine; Visit Provider Family Medicine
DX: Z12.31 Encounter for screening mammogram for malignant neoplasm of breast (principal); Z98.82 Breast implant status
CPT/HCPCS: 77063; 77067

== ENCOUNTER 2025-03-02 12:57 | Outpatient (CLI) | payer OTHER, SELFPAY ==
--- NOTE | ~2025-03-02 | DEXA_ITS ---
Bone Density Report Name: JORDAN BARBOZA Age: 54 Sex: Female Ethnicity: White Date of : 1970 Indication: postmenopausal; screening for osteoporosis; prior fracture; Referring Provider: ROBIN MCINTYRE Study: Bone densitometry was performed. Exam Date: March 02, 2025 Accession number: [id number] Bone Density: Region BMD T-score Z-score Classification AP Spine(L1-L4) 1.027 -0.2 0.7 Normal Femoral Neck (Left) 0.885 0.3 1.2 Normal Total Hip (Left) 0.889 -0.4 0.1 Normal Femoral Neck (Right) 0.848 0.0 0.9 Normal Total Hip (Right) 0.907 -0.3 0.3 Normal Femoral Neck Mean 0.867 0.2 1.0 Normal Total Hip Mean 0.898 -0.4 0.2 Normal World Health Organization criteria for BMD impression classify patients as: Normal (T-score at or above -1.0), Osteopenia (T-score between -1.0 and -2.5), or Osteoporosis (T-score at or below -2.5). 10-year Fracture Risk: FRAX not reported because: All T-scores for Spine Total, Hip Total, Femoral Neck at or above -1.0 Prior hip or vertebral fracture Clinical Information Provided by Patient: Have had a previous hip or vertebral fracture Has had a low trauma fracture Smokes Has used the following medications: HRT (i.e. estrogen/hormone therapy), Vitamin D, Calcium, Synthroid, MULTI Has the following medical conditions: Hypothyrodism Patient maximum height was 67.0 No regular weight bearing exercise Drinks caffeinated beverages Onset of menses at age 15 Number of children 2 Impression: The patient has normal bone mass. The patient has risk factors, including: smoking, previous fracture. Discussion: INCREASED RISK OF FRACTURE DUE TO HISTORY OF FRACTURE. The patient's previous fracture puts the patient at high risk of a future fracture. In untreated patients, the risk of osteoporotic fracture increases approximately two-fold for each 1.0 SD decrease in T-score. Low bone density is not the only risk factor for fracture; also consider factors such as patient's age, frailty or poor health, risk of falling, risk of injury, previous osteoporotic fracture, family history of osteoporosis, cigarette smoking, low body weight, etc. Not everyone with a low trauma fracture has osteoporosis; osteomalacia and other metabolic bone disorders should also be considered. Patients who have osteoporosis should be evaluated for specific diseases and conditions (secondary causes) that may cause or contribute to bone loss and fracture risk. National Osteoporosis Foundation (NOF) recommends pharmacologic intervention for patients with a prior hip or vertebral fracture regardless of BMD T-score. The patient should follow a healthful lifestyle (good nutrition with adequate calcium and vitamin D, and appropriate weight-bearing exercise). Follow-Up: Consider a repeat BMD and Vertebral Fracture Assessment (VFA) exam in 2 years or sooner if medically necessary, to reassess this patient's status. Reported by: JESSICA on 03/02/2025 1:27:00 PM. Reviewed, dictated and finalized at location A.
--- NOTE | ~2025-03-02 | CT_ITS ---
EXAMINATION: CT lung screening DATE: 03/02/2025 13:34 INDICATION: Lung cancer screening TECHNIQUE: Computed tomography (CT) of the chest was performed without intravenous contrast. The dose-length product was 119.79 mGy-cm. Automated exposure control and iterative reconstruction technique were employed. COMPARISON: CT dated 01/09/2023 FINDINGS: Heart size normal. No thoracic lymphadenopathy. No significant pleural or pericardial effusion. Status post cholecystectomy. There are bilateral breast implants. No thoracic lymphadenopathy. No endobronchial lesions. No pneumothorax. No focal airspace consolidation. No suspicious masses. No focal lytic or blastic lesions. Mild superior endplate compression deformity of T3, chronic. IMPRESSION: 1. Lung-RADS category 1: Negative. Continue annual screening with noncontrast low-dose chest CT in 12 months. Reviewed, dictated and finalized at location O. IMPRESSION: 1. Lung-RADS category 1: Negative. Continue annual screening with noncontrast l ow-dose chest CT in 12 months.
--- OUTSIDE RECORDS SUMMARY | 2025-03-02 13:05 | XMS_ITS | Clinical Summary ---
Author Organization [facility] Address [address] [place] [address] Care Team Providers Care Piece Goods Clerk Name Role Phone Faheem Beckman MD Primary Care Provider [phone] Source Comments [facility],non-[facility] Affiliates and Associated Physician Practices is amultiple site organization consisting of ambulatory clinics and hospital sitesin [place], [place], [place] and [place]. This disclosure is being madepursuant to the Care Everywhere program and may not contain all information available regarding this patient. Last updated 18.[facility] Family History Medical History Relation Name Comments Cancer - Skin, Non Melanoma Father Cancer - Skin, Melanoma Mother Cancer - Skin, Non Melanoma Sister Relation Name Status Comments Father Mother Sister Social History Tobacco Use Types Packs/Day Years Used Date Smoking Tobacco: Some Days Alcohol Use Standard Drinks/Week Comments Yes 0 (1 standard drink = 0.6 oz pur e alcohol) Comments Unknown Sex and Gender Information Value Date Recorded Sex Assigned at Not on file Legal Sex Female 6:21 PM [employer]OX [employer] Gender Identity Not on file Sexual Orientation Not on file Last Filed Vital Signs Vital Sign Reading Time Taken Comments Blood Pressure 97/68 03/24/2014 3:28 PM CDT Pulse 81 03/24/2014 3:28 PM CDT Temperature - - Respiratory Rate - - Oxygen Saturation 99% 03/24/2014 3:28 PM CDT Inhaled Oxygen Concentration - - Weight 72.6 kg (160 lb) 03/24/2014 1:47 PM CDT Height 170.2 cm (5' 7) 03/24/2014 1:47 PM CDT Body Mass Index 25.06 03/24/2014 1:47 PM CDT Plan of Treatment Health Maintenance Due Date Last Done Comments DANI (AGES 45-75) - COL ON CA SCREENING 1972 COLON MONITORING 1972 COLONOSCOPY - COLON CA SCREENING 1972 CT COLONOGRAPHY - COLON CA SCREENING 1972 Colorectal Cancer Screening 1972 FIT - COLON CA SCREENING 1972 FLEX SIG - COLON CA SCREENING 1972 LIPID TESTING 1972 MAMMOGRAM 1972 HIV SCREENING 12/29/1987 HEPATITIS C SCREENING 12/24/1990 DTAP/TDAP/TD VACCINES (1 - Tdap) 12/29/1991 HEPATITIS B VACCINE (1 of 3 - 19+ 3-dose series) 12/29/1991 PNEUMOCOCCAL VACCINE 50+ (1 of 2 - PCV) 12/29/1991 PAP SMEAR 1993 ZOSTER VACCINE (1 of 2) 2022 COVID-19 VACCINE (1 - 2023-2 5 season) 2024 DEPRESSION SCREENING 07/09/2024 INFLUENZA VACCINE (#1) 2025 HIB VACCINE Aged Out No longer eligi ble based on patient's age to complete this topic HPV VACCINE Aged Out No longer eligi ble based on patient's age to complete this topic MENINGOCOCCAL (Group B) VACC INE SHARED DECISION-MAKING Aged Out No longer eligibl e based on patient's age to complete this topic MENINGOCOCCAL GROUPS A/C/Y/W VACCINE Aged Out No longer eligible b ased on patient's age to complete this topic Insurance [facility] Care Teams Piece Goods Clerk Relationship Specialty Start Date End Date Faheem Beckman MD [address] [place] [address] PCP - General 03/24/14
--- OUTSIDE RECORDS SUMMARY | 2025-03-02 13:05 | XMS_ITS | Encounter Summary ---
Author Organization [facility] Health Address [address] [place] [address] Care Team Providers Care Biometric Screener Name Role Phone Faheem Beckman MD Primary Care Provider [phone] Encounter Details Date Type Department Care Team (Late st Contact Info) Description 02/07/2022 Lab Requisition [facility] Lab [address] [place] [phone] Faheem Beckman MD [address] [place] [phone] Social History Tobacco Use Types Packs/Day Years Used Date Smoking Tobacco: Some Days Alcohol Use Standard Drinks/Week Comments Yes 0 (1 standard drink = 0.6 oz pur e alcohol) Comments Unknown Sex and Gender Information Value Date Recorded Sex Assigned at Not on file 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 Gender Identity Not on file Sexual Orientation Not on file documented as of this encounter Plan of Treatment Not on file documented as of this encounter Procedures Procedure Name Priority Date/Time Associated Diagnosis Comments DERMATOPATHOLOGY Routine 02/06/2022 3:33 AM CDT documented in this encounter Results * DERMATOPATHOLOGY (02/06/2022 3:33 AM CDT) Case Report Dermatopathology Report Case: [id number] Authorizing Provider: Faheem Beckman MD Collected: 02/06/2022 03:33 AM Ordering Location: [facility] Received: 02/07/2022 07:19 AM Pathologist: Genet Alvarado MD Specimen: Skin, right upper chest 4:30 PM CDT DERMATOPATHOLOGY LABORATORY Final Diagnosis Specimen A. SKIN, right upper chest: BENIGN VERRUCOUS KERATOSIS, INFLAMED (L82.1) PRESENT AT MARGIN 2 4:30 PM CDT DERMATOPATHOLOGY LABORATORY at 1630 CDT Clinical History Changing Lesion. Please Check Margins. 4:30 PM CDT DERMATOPATHOLOGY LABORATORY Gross Description Specimen A: Received is one formalin filled container labeled with the patient's name and designated right upper chest. The specimen consists of a shave biopsy measuring [id number] and it is inked. Jar 0. 4:30 PM CDT DERMATOPATHOLOGY LABORATORY Microscopic Description Specimen A. SKIN, right upper chest: Sections show hyperkeratosis, papillomatosis, hypergranulosis, and acanthosis. Inflammatory cells are present within the dermis. These histological findings can be seen in a verruca vulgaris or a seborrheic keratosis. This lesion is present at the margin of the specimen. 4:30 PM CDT DERMATOPATHOLOGY LABORATORY Disclaimer An external and internal positive and negative controls are appropriate for the histochemical, immunohistochemical and immunofluorescence stain(s) in this case (if any), except where stated explicitly. The performance characteristics of the stain(s) cited in this report were developed and its performance characteristic determined by the Dermatopathology Laboratory at [facility], directed by Dr. Gabriela Fowler. These tests need not be, and therefore are not, approved by the [place] Food and Drug Administration. The tests are used for clinical purposes. Billing Codes Specimen Charges Stain Charges 40012 1 2 4:30 PM CDT DERMATOPATHOLOGY LABORATORY Embedded Images 4:30 PM CDT DERMATOPATHOLOGY LABORATORY Pathology/Cytolo gy TISSUE SPECIMEN FROM SKIN / Unknown 02/06/2022 3:33 AM CDT 02/07/2022 7:19 AM CDT us Faheemdoug Beckman MD LAB - PATHOLOGY/CYTOLOGY RAI FUCHS Final Result DERMATOPATHOLOGY LABORATORY [facility] Department of Dermatology [facility] Specialized Medicine [facility], 3rd Floor [address] [phone] documented in this encounter Visit Diagnoses Not on filedocumented in this encounter Care Teams Biometric Screener Relationship Specialty Start Date End Date Faheem Beckman MD [address] [place] [address] PCP - General 03/24/14 documented as of this encounter
--- OUTSIDE RECORDS SUMMARY | 2025-03-02 13:05 | XMS_ITS | Clinical Summary ---
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 Overview (10/12/2016): THYRTOX ORIG NEC NO TERRY Drug indicated 01/20/2014 Overview (10/12/2016): LONG-TERM USE MEDS NEC Reduced libido 11/22/2013 Overview (10/12/2016): DECREASED LIBIDO Hypothyroidism 11/22/2013 Overview (10/13/2016): Hypothyroidism 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 Medical History Medical History Date Comments Depression Depression Family History Medical History Relation Name Comments Cancer Brother 2 Cancer -; Cause of : Cancer - Bladder Cancer Father 2 Family histor y of malignant neoplasm of urinary bladder - (Added by TW Conv) Coronary artery disease Father 2 Mike nary artery disease; Cause of : Coronary artery disease Heart disease Father 2 Family history of cardiac disorder - (Added by TW Conv) Colon cancer Mother 2 Family history of colon cancer - (Added by TW Conv) Relation Name Status Comments Brother 1 Brother 2 Father 1 (Age 72) Father 2 Mother 1 (Age 62) Mother 2 Social History Tobacco Use Types Packs/Day Years Used Date Smoking Tobacco: Never Assessed Alcohol Use Standard Drinks/Week Comments Yes 0 (1 standard drink = 0.6 oz pur e alcohol) Comments Unknown Sex and Gender Information Value Date Recorded Sex Assigned at Not on file Legal Sex Female 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 Gender Identity Not on file Sexual Orientation Not on file Obstetrics History Last Filed Vital Signs Vital Sign Reading Time Taken Comments Blood Pressure 100/66 08/10/2020 10:52 AM RESEARCH AND DEVELOPMENT DIRECTOR Pulse 65 08/10/2020 10:52 AM RESEARCH AND DEVELOPMENT DIRECTOR Temperature 36.5 C (97.7 F) 08/10/2020 10:52 AM RESEARCH AND DEVELOPMENT DIRECTOR Respiratory Rate - - Oxygen Saturation 98% 08/10/2020 10: 52 AM RESEARCH AND DEVELOPMENT DIRECTOR Inhaled Oxygen Concentration - - Weight 79.3 kg (174 lb 14.4 oz) 021 10:52 AM RESEARCH AND DEVELOPMENT DIRECTOR Height 170.2 cm (5' 7) 08/10/2020 10:5 2 AM RESEARCH AND DEVELOPMENT DIRECTOR Body Mass Index 27.39 08/10/2020 10:52 AM RESEARCH AND DEVELOPMENT DIRECTOR Plan of Treatment Health Maintenance Due Date Last Done Comments Breast Cancer Screening-Mammogram 1972 Cervical Cancer Screening 1972 Colon Cancer Screening-Colonoscopy 1972 Depression Screening 1972 Hepatitis C Screening 1972 DTaP/Tdap/Td Vaccine (1 - Tdap) 12/29/1983 Hepatitis B Screening 1990 Regular Well Visit/Exam 18-64 1990 Zoster Vaccine (1 of 2) 2022 Covid-19 Vaccine (3 - 2023-2 5 season) 2024 10/12/2020, 09/19/2020 Influenza Vaccine (#1) 2025 Pneumococcal vaccine <65 Aged Out No longer eligible based on patient's age to complete this topic Additional Health Concerns Infection Onset Date Last Indicated COVID19 Comment:06/2708/10/2020 08/09/2020 Insurance [facility] CHOICE PLUS [facility] CHOICE PLUS [facility] CHOICE PLUS Care Teams Real Estate Assessor Relationship Specialty [place] [address] [facility] [address] [place] [id number] PCP - General 08/26/20
--- OUTSIDE RECORDS SUMMARY | 2025-03-02 13:05 | XMS_ITS | Clinical Summary ---
Author Organization 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 Gender Identity Not on file Sexual Orientation Not on file Plan of Treatment Health Maintenance Due Date Last Done Comments Hepatitis C Virus (HCV) Screening 1972 TdaP Immunization 1972 Hepatitis B Immunization (1 of 3 - 19+ 3-dose series) 12/29/1991 Pap Smear 1993 Cervical Cancer Screening (CCS) 2002 HPV/Cotest 2002 Cologuard 2017 Colonoscopy 2017 Colorectal Cancer Screening 2017 Immunochemical Fecal Occult Blood 2017 Pneumococcal Immunization (5 0+ years) (1 of 1 - PCV) 2022 Zoster Immunization (1 of 2) 2022 SARS-COV-2 Immunization ( - 2023- season) 2024 Influenza Immunization (#1) 2025 Respiratory Syncytial Virus (RSV) Immunization (Adult) (1 - 1-dose 75+ series) 12/29/2047 Human Papillomavirus (HPV) Immunization Aged Out No longer eligible b ased on patient's age to complete this topic Meningococcal Immunization (ACWY) Aged Out No longer eligible based on patient's age to complete this topic Rotavirus Immunization Aged Out No lo nger eligible based on patient's age [place] [address] [employer] on file
--- OUTSIDE RECORDS SUMMARY | 2025-03-02 13:05 | XMS_ITS | Encounter Summary ---
Author Organization [facility] Address [address] [place] [address] Care Team Providers Care Building Construction Estimator Name Role Phone Faheem Beckman MD Primary Care Provider [phone] Reason for Referral * Surgical (Routine) - New Request Specialty Diagnoses / Procedures Referred By Ingris bach Referred To Contact Diagnoses SI joint arthritis Procedures Case request operating room: BLOCK SACROILIAC JOINT Paige Mckeon CNP [address] [address] Phone: tel: [phone] fax: Referral ID Status Reason Start Date Expiration Date V isits Requested Visits Authorized [id number] New Request 04/09/2024 04/09/2025 1 1 Encounter Details Date Type Department Care Team (Late st Contact Info) Description 04/09/2024 Prep for Procedure [facility] [place] [address] [id number] Paige Mckeon CNP [address] [phone] (Work) Social History Tobacco Use Types Packs/Day Years Used Date Smoking Tobacco: Never Smokeless Tobacco: Never Alcohol Use Standard Drinks/Week Comments Never 0 (1 standard drink = 0.6 oz pur e alcohol) Comments No Sex and Gender Information Value Date Recorded Sex Assigned at Female 08/04/2024 11:34 AM LAY OUT MAKER Legal Sex Female 5:46 PM CDT Gender Identity Not on file Sexual Orientation Not on file documented as of this encounter Plan of Treatment Not on file documented as of this encounter Visit Diagnoses Diagnosis SI joint arthritis- Primary Sacroiliitis, not elsewhere classified documented in this encounter Care Teams Building Construction Estimator Relationship Specialty Start Date End Date Faheem Beckman MD [address] [place], [place] [phone] PCP - General FAMILY PRACTICE 05/02/23 documented as of this encounter
--- OUTSIDE RECORDS SUMMARY | 2025-03-02 13:05 | XMS_ITS | Clinical Summary ---
Author Organization [facility] Address [address] [place] [address] Care Team Providers Care Call Specialist Name Role Phone Faheem Beckman MD Primary Care Provider Allergies Active Allergy Reactions Criticality Noted Date Comments Sulfamethoxazole Rash Low 05/10/2023 Medications levothyroxine (SYNTHROID) 75 MCG tablet Take 1 tablet (75 mcg total) by mouth every morning. 03/09/20 23 Active citalopram (CELEXA) 20 MG tablet Take 1 tablet (20 mg total) by mouth daily. 04/30/20 23 Active ALPRAZolam (XANAX) 0.5 MG tablet Take 1 tablet (0.5 mg total) by mouth 3 (three) times daily as needed. 03/19/20 23 Active ibuprofen (MOTRIN) 800 MG tablet Take 1 tablet (800 mg total) by mouth every 8 (eight) hours as needed. 01/04/20 23 Active naproxen (NAPROSYN) 375 MG tablet 01/10/20 23 Active testosterone cypionate (DEPO TESTOSTERONE) 200 MG/ML injection INJECT 0.05ML (5 UNITS) SUBCUTANEOUSLY EVERY 7 DAYS. DOSING MAY BE INCREASED TO 0.1ML PER WEEK, AT PROVIDER DISCRETION. 06/19/20 24 Active progesterone (PROMETRIUM) 100 MG capsule take 1 capsule by mouth at night 07/16/19 25 Active IMVEXXY MAINTENANCE PACK 4 MCG INSERT INSERT VAGINALLY TWICE WEEKLY 07/16/19 25 Active AMY 0.025 MG/24HR APPLY PATCH TO CLEAN DRY SKIN TWICE WEEKLY 07/16/19 25 Active busPIRone (BUSPAR) 7.5 MG tablet Take 1 tablet (7.5 mg total) by mouth daily. 01/08/20 25 Active Active Problems Problem Noted Date Diagnosed Date Lumbar radiculopathy 06/12/2024 Lumbar facet arthropathy 08/16/2023 SI joint arthritis 05/02/2023 Overview (05/02/2023): Added automatically from request for surgery [id number] Family History Medical History Relation Comments Cancer Brother Cancer Father Heart Disease Father Hypertension Father Cancer Mother Stroke Sister Relation Status Comments Brother Father Mother Sister Social History Tobacco Use Types Packs/Day Years Used Date Smoking Tobacco: Never Smokeless Tobacco: Never Tobacco Cessation:Counseling Given: Not Answered Alcohol Use Standard Drinks/Week Comments Never 0 (1 standard drink = 0.6 oz pur e alcohol) Comments No Sex and Gender Information Value Date Recorded Sex Assigned at Female 08/04/2024 11:34 AM ANALYSIS TESTER Legal Sex Female 5:46 PM CDT Gender Identity Not on file Sexual Orientation Not on file Last Filed Vital Signs Vital Sign Reading Time Taken Comments Blood Pressure 110/75 11/03/2024 11:38 AM CDT Pulse 75 11/03/2024 11:38 AM CDT Temperature 36.4 C (97.5 F) 08/04/2024 11:56 AM ANALYSIS TESTER Respiratory Rate 16 11/03/2024 11:38 AM CDT Oxygen Saturation 97% 11/03/2024 11:38 AM CDT Inhaled Oxygen Concentration - - Weight 71.5 kg (157 lb 9.6 oz) 08/04/2024 11:56 AM ANALYSIS TESTER Height 170.2 cm (5' 7) 08/04/2024 11:56 AM ANALYSIS TESTER Body Mass Index 24.68 08/04/2024 11:56 AM ANALYSIS TESTER Plan of Treatment Health Maintenance Due Date Last Done Comments Cervical Cancer Screening Pa p Smear (Age 30 to 64) Every 3 Years 1972 Colorectal Cancer Screening Colonoscopy (10 Years) 1972 Annual Physical 12/29/1975 Hepatitis C 1990 DTaP, Tdap and Td Vaccines ( 1 - Tdap) 12/29/1991 Hepatitis B Vaccines (1 of 3 - 19+ 3-dose series) 12/29/1991 Cervical Cancer Screening Pa p with HPV Testing (Age 30 to 64) Every 5 Years 2002 Cervical Cancer Screening wi th HPV 2002 Mammogram Screening 2012 Pneumococcal Vaccine: 50+ Years (1 of 1 - PCV) 2022 Zoster Vaccines (1 of 2) 2022 COVID-19 Vaccine (3 - 2023-2 5 season) 2024 10/12/2020, 09/19/2020 Meningococcal B Vaccine Aged Out No l onger eligible based on patient's age to complete this topic Meningococcal Vaccine Aged Out No ronald nina eligible based on patient's age to complete this topic RSV Immunizations Under 20 Months Aged Out No longer eligible b ased on patient's age [place] [address] Care Teams Call Specialist Relationship Specialty Start Date End Date Faheem Beckman MD [address] [address] PCP - General FAMILY PRACTICE 05/02/23
--- OUTSIDE RECORDS SUMMARY | 2025-03-02 13:05 | XMS_ITS | Encounter Summary ---
Author Organization [facility] Health Address [address] [facility] [place] [address] Care Team Providers Care Education Program Associate Name Role Phone Faheem Beckman MD Primary Care Provider [phone] Encounter Details Date Type Department Care Team (Late st Contact Info) Description 05/11/2023 Lab Requisition [facility] - DermPath Lab [address] [facility] [place] [phone] Jace Ortiz MD [address] [place] [address] Social History Tobacco Use Types Packs/Day Years Used Date Smoking Tobacco: Some Days Alcohol Use Standard Drinks/Week Comments Yes 0 (1 standard drink = 0.6 oz pur e alcohol) Comments Unknown Sex and Gender Information Value Date Recorded Sex Assigned at Not on file 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 Gender Identity Not on file Sexual Orientation Not on file documented as of this encounter Plan of Treatment Not on file documented as of this encounter Procedures Procedure Name Priority Date/Time Associated Diagnosis Comments DERMATOPATHOLOGY Routine 05/09/2023 12:0 0 AM CDT documented in this encounter Results * DERMATOPATHOLOGY (05/09/2023 12:00 AM CDT) Case Report Dermatopathology Report Case: [id number] Authorizing Provider: Jace Ortiz MD Collected: 05/09/2023 12:00 AM Ordering Location: [facility] Derm[facility] Lab Received: 05/11/2023 07:27 AM Pathologist: Genet Alvarado MD Specimen: Skin, right ala 3 1:47 PM [facility] DERMATOPATHOLOGY LABORATORY Final Diagnosis Specimen A. SKIN, right ala: BASAL CELL CARCINOMA, NODULAR TYPE (C44.311) (see microscopic description) 3 1:47 PM [facility] DERMATOPATHOLOGY LABORATORY at 1347 RIB TRIM SEPARATOR Clinical History Nevus vs BCCA Path# [id number] 3 1:47 PM [facility] DERMATOPATHOLOGY LABORATORY Gross Description Specimen A: Received is one formalin filled container labeled with the patient's name and designated right ala. The specimen consists of a shave biopsy measuring 3x3x1 mm. Jar 0. 1:47 PM [facility] DERMATOPATHOLOGY LABORATORY Microscopic Description Specimen A. SKIN, right ala: Within the dermis there are aggregates of basaloid cells with a high nuclear to cytoplasmic ratio and peripheral palisading. Additional deeper sections were obtained and reviewed. 1:47 PM [facility] DERMATOPATHOLOGY LABORATORY Disclaimer An external and internal positive and negative controls are appropriate for the histochemical, immunohistochemical and immunofluorescence stain(s) in this case (if any), except where stated explicitly. The performance characteristics of the stain(s) cited in this report were developed and its performance characteristic determined by the Dermatopathology Laboratory at [facility], directed by Dr. Gabriela Fowler. These tests need not be, and therefore are not, approved by the [place] Food and Drug Administration. The tests are used for clinical purposes. Billing Codes Specimen Charges Stain Charges 04539 1 3 1:47 PM [facility] DERMATOPATHOLOGY LABORATORY Embedded Images 3 1:47 PM [facility] DERMATOPATHOLOGY LABORATORY Pathology/Cytolog y TISSUE SPECIMEN FROM SKIN / Unknown 05/09/2023 05/11/2023 7:27 AM CDT us Jace Ortiz MD LAB - PATHOLOGY/CYTOLOGY ORDER EDWIGE Final Result DERMATOPATHOLOGY LABORATORY [facility] - Department of Dermatology [address], [address] [phone] documented in this encounter Visit Diagnoses Not on filedocumented in this encounter Care Teams Education Program Associate Relationship Specialty Start Date End Date Faheem Beckman MD [address] [place] [address] PCP - General 03/24/14 documented as of this encounter
--- OUTSIDE RECORDS SUMMARY | 2025-03-02 13:05 | XMS_ITS | Encounter Summary ---
Author Organization [facility] Health Address [address] [facility] [place] [address] Care Team Providers Care Welder Assembler Name Role Phone Faheem Beckman MD Primary Care Provider [phone] Encounter Details Date Type Department Care Team (Late st Contact Info) Description 11/10/2019 Lab Requisition [facility] DermPath Lab [address] [place] [phone] Jace Ortiz MD [address] [facility] [place] [address] Social History Tobacco Use Types Packs/Day Years Used Date Smoking Tobacco: Some Days Alcohol Use Standard Drinks/Week Comments Yes 0 (1 standard drink = 0.6 oz pur e alcohol) Comments Unknown Sex and Gender Information Value Date Recorded Sex Assigned at Not on file 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 Gender Identity Not on file Sexual Orientation Not on file documented as of this encounter Plan of Treatment Not on file documented as of this encounter Procedures Procedure Name Priority Date/Time Associated Diagnosis Comments DERMATOPATHOLOGY Routine 11/10/2019 12:0 0 AM CDT documented in this encounter Results * DERMATOPATHOLOGY (11/10/2019 12:00 AM CDT) Case Report Dermatopathology Report Case: [id number] Authorizing Provider: Jace Ortiz MD Collected: 11/10/2019 12:00 AM Ordering Location: [facility] DermPath Lab Received: 11/10/2019 02:36 PM Pathologist: Sultana Mckeon MD Specimen: Skin, left mid back 0 4:26 PM CDT DERMATOPATHOLOGY LABORATORY Final Diagnosis Specimen A. SKIN, left mid back: LENTIGINOUS MELANOCYTIC NEVUS, COMPOUND TYPE, IRRITATED (COMPOUND MELANOCYTIC NEVUS WITH ARCHITECTURAL DISORDER) (D22.5) (see microscopic description) 0 4:26 PM CDT DERMATOPATHOLOGY LABORATORY at 1626 CDT Clinical History Nevus vs MM. Path # [id number]. 0 4:26 PM CDT DERMATOPATHOLOGY LABORATORY Gross Description Specimen A: Received is one formalin filled container labeled with the patient's name and designated left mid back. The specimen consists of a shave biopsy measuring [id number]. Jar 0. 0 4:26 PM CDT DERMATOPATHOLOGY LABORATORY Microscopic Description Specimen A. SKIN, left mid back: This is a compound nevus. There is melanin pigment in the stratum corneum. There is architectural disorder characterized by a lentiginous proliferation of melanocytes between irregular nests of cells along the dermal-epidermal junction, highlighted by SOX-10 immunohistochemical staining. There is underlying fibroplasia of the papillary dermis. The intradermal component is bland appearance and matures with depth. Some melanocytes are splayed between collagen bundles and are localized around adnexal structures. An immunostain for HMB-45 shows a zonal staining pattern in the intradermal melanocytes, with gradual loss of staining with increasing dermal depth. Original and deeper sections were reviewed. (Compound Nicolás's Nevus or Compound Dysplastic Nevus) 0 4:26 PM CDT DERMATOPATHOLOGY LABORATORY Disclaimer An external and internal positive and negative controls are appropriate for the histochemical, immunohistochemical and immunofluorescence stain(s) in this case (if any), except where stated explicitly. The performance characteristics of the stain(s) cited in this report were developed and its performance characteristic determined by the Dermatopathology Laboratory at [facility], directed by Dr. Gabriela Fowler. These tests need not be, and therefore are not, approved by the [place] Food and Drug Administration. The tests are used for clinical purposes. Billing Codes Specimen Charges Stain Charges 14547 1 25775 29164 1 1 0 4:26 PM CDT DERMATOPATHOLOGY LABORATORY Embedded Images 0 4:26 PM CDT DERMATOPATHOLOGY LABORATORY Pathology/Cytolog y TISSUE SPECIMEN FROM SKIN / Unknown 11/10/2019 11/10/2019 2:36 PM CDT us Jace Ortiz MD LAB - PATHOLOGY/CYTOLOGY ORDER EDWIGE Final Result DERMATOPATHOLOGY LABORATORY [facility] - Department of Dermatology [address] [place] [address], 5th Floor Lab [address] [phone] documented in this encounter Visit Diagnoses Not on filedocumented in this encounter Care Teams Welder Assembler Relationship Specialty Start Date End Date Faheem Beckman MD [address] [place] [address] PCP - General 03/24/14 documented as of this encounter
== END 2025-03-02 12:58 | disposition home or self-care (01) ==
LOC: CHSIMG 12:58
PROVIDERS: PCP Family Medicine; Visit Provider Physician Assistant Medical
DX: Z78.0 Asymptomatic menopausal state (principal); Z87.891 Personal history of nicotine dependence; Z12.2 Encounter for screening for malignant neoplasm of respiratory organs
CPT/HCPCS: 71271; 77080